=== PATIENT | female | born 1970 | race Two or more races ===

== ENCOUNTER → 2024-06-26 | Outpatient (CLI) | payer MEDICAID, SELFPAY ==
--- NOTE | 2024-06-26 16:00 | XR_ITS ---
Examination: CT brain head without contrast. 2-D sagittal coronal reconstructions Date and time of exam:June 26, 2024 1453 hours Comparison May 10, 2023 INDICATIONS: Patient fell April 2024 with injury to the head, head pain CTDI: vol (mGy):47.2 DLP: (mGycm):925 Technique: Multiple CT axial sections of the brain have been obtained, 5 mm slice thickness. Contrast has not been administered. 2-D sagittal, coronal reconstructions have been obtained Low dose protocols were performed. One or more of the following dose reduction techniques were used; automated exposure control, adjustment of the mA and/or KV according to patient size, use of iterative reconstruction technique. Findings: No significant ventricular enlargement. Small posterior right cerebral calcifications Intra-axial or extra-axial hemorrhage density is not seen. No mass effect or midline shift Basal cisterns are not remarkable. Fourth ventricle is midline. Cranial vault intact. Impression: Negative for acute hemorrhage, mass effect or midline shift
== END | disposition home or self-care (01) ==
LOC: CCTX 14:20
PROVIDERS: PCP Nurse Practitioner Family; Referring Provider Nurse Practitioner Family; Visit Provider Nurse Practitioner Family
DX: R51.9 Headache, unspecified (principal)
CPT/HCPCS: 70450

== ENCOUNTER → 2024-11-27 | Outpatient (CLI) | payer MEDICAID, SELFPAY ==
--- NOTE | 2024-11-27 14:30 | XR_ITS ---
Examination: Screening digital mammography, bilateral Computer aided detection 3-D breast Tomosynthesis, bilateral Date and time of exam: November 27, 2024 1452 hours Compared to mammograms dating to August 09, 2015 Indication: Screening Technique: Nonmagnified MLO, CC views of the breasts to been obtained, reconstructed from 3-D Tomosynthesis images. R2 computer aided detection program utilized for evaluation of suspicious masses and/or abnormal calcifications. 3-D Tomosynthesis images obtained. Findings: Scattered areas of fibroglandular density. 5 mm nodule upper outer right breast, partially circumscribed Impression: BI-RADS Category 0: Incomplete: Need additional imaging evaluation Recommend follow-up spot tomographic views of partially circumscribed nodule upper outer right breast as well as right breast sonography to complete the workup
== END | disposition home or self-care (01) ==
PROVIDERS: Referring Provider Nurse Practitioner Women's Health; Visit Provider Nurse Practitioner Women's Health
DX: Z12.31 Encounter for screening mammogram for malignant neoplasm of breast (principal); N63.11 Unspecified lump in the right breast, upper outer quadrant
CPT/HCPCS: 77063; 77067

== ENCOUNTER → 2025-05-07 | Outpatient (CLI) | payer MEDICAID, SELFPAY ==
--- NOTE | 2025-05-07 11:15 | XR_ITS ---
Examination: Breast ultrasound, unilateral, right Date and time of exam: May 07, 2025, 1145 hours INDICATIONS: Mammogram November 27, 2024 5 mm nodule upper outer right breast Technique: Real-time raza scale ultrasonographic imaging performed right breast including all 4 quadrants as well as nipple retroareolar and axillary region. Findings: Sonographic images right breast 11:00 cyst, 3 x 5 mm, 3 x 2 mm No solid nodules IMPRESSION: BI-RADS Category 2: Benign findings
--- NOTE | 2025-05-07 11:45 | XR_ITS ---
Examination: Diagnostic digital mammography, unilateral, right Computer aided detection 3-D breast Tomosynthesis, unilateral Date and time of exam: May 07, 2025, 1136 hours INDICATIONS: Mammogram November 27, 2024 5 mm nodule upper outer right breast Technique: Nonmagnified MLO, CC views of the right breast have been obtained, reconstructed from 3-D Tomosynthesis images. R2 computer aided detection program utilized for evaluation of suspicious masses and/or abnormal calcifications. 3-D Tomosynthesis images obtained. Findings: Scattered areas of fibroglandular density. Benign calcifications. No suspicious masses noted on spot compression views Impression: BI-RADS category 2: Benign findings Recommend yearly follow-up mammography
== END | disposition home or self-care (01) ==
PROVIDERS: PCP Nurse Practitioner Family; Referring Provider Nurse Practitioner Women's Health; Visit Provider Nurse Practitioner Women's Health
DX: R92.323 Mammographic fibroglandular density, bilateral breasts (principal); R92.1 Mammographic calcification found on diagnostic imaging of breast
CPT/HCPCS: 76641; 77061; 77065; G0279